=== PATIENT | female | born 1965 | race Caucasian/White ===

== ENCOUNTER 2019-10-17 17:20 | Emergency (ER) | payer OTHER ==
[~2019-10-17] VITALS: Ht 147.3 cm; Wt 52.6 kg
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
[2019-10-17] MEDS ORDERED: HYDRALAZINE HCL 20 MG/ML VIAL IV STA ×2 (18:41→18:42)
--- NOTE | 2019-10-17 18:50 | NUR ---
PATIENT STATES SHE DOES NOT TAKER HER BP AT HOME, BUT EVERY TIME SHE GOES INTO THE [facility] OFF[facility] HER BP IS ELEVATED AND HER MEDS ARE ADJUSTED. PATIENT DENIES ANY HEADACHE OR N/V. NEUROLOGICALLY INTACT
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
[2019-10-17] MEDS ORDERED: MOTRIN200 MG PO (19:26)
[2019-10-17] MEDS ORDERED: ROBAXIN-750750 MG PO (19:26)
[2019-10-17] MEDS ORDERED: HYDROCODONE/APAP 10MG-325MG TAB ONE (20:25)
[2019-10-17] MEDS ORDERED: KETOROLAC TROMETHAMINE 60 MG/2 ML VIAL IM ONE (20:30)
[2019-10-17] MEDS ORDERED: HYDROCODONE/APAP 10MG-325MG TAB PO ONE (20:30)
[2019-10-17] MEDS ORDERED: CLONIDINE HCL 0.1 MG TAB PO ONE (20:45)
[2019-10-17 21:20] VITALS: BP 211/83
== END 2019-10-17 21:40 | disposition home or self-care (01) ==
LOC: ER 18:50
DX: S16.1XXA Strain of muscle, fascia and tendon at neck level, initial encounter (principal); M25.562 Pain in left knee; V43.52XA Car driver injured in collision with other type car in traffic accident, initial encounter; Y92.488 Other paved roadways as the place of occurrence of the external cause; I10 Essential (primary) hypertension; E11.9 Type 2 diabetes mellitus without complications
CPT/HCPCS: 70450; 71045; 72125; 73562; 99283; J0360; J1885

== ENCOUNTER 2020-05-12 03:10 | Inpatient (IN) | payer OTHER ==
[~2020-05-12] VITALS: Ht 147.3 cm; Wt 53.5 kg
[~2020-05-12 03:10] MED LIST: MOTRIN200 MG PO; ROBAXIN-750750 MG PO
[2020-05-12] MEDS ORDERED: KETOROLAC TROMETHAMINE 30 MG/ML VIAL IV STA (03:17)
[2020-05-12] MEDS ORDERED: SODIUM CHLORIDE 0.9% 1000ML 1,000 ML IV ONE (03:30)
[2020-05-12 03:42] LABS: BASOPHILS # (AUTO) 0.1 (0.0-0.1); BASOPHILS % 0.4 % (0.0-1.0); HEMATOCRIT 41.9 % (34.2-44.1); HEMOGLOBIN 14.2 g/dL (12.0-16.0); LYMPHOCYTES # (AUTO) 0.2 (1.0-3.2); LYMPHOCYTES % 0.7 % (18.0-39.1); MEAN CORPUSCULAR HEMOGLOBIN 32.7 pg (28-32); MEAN CORPUSCULAR HGB CONC 33.9 g/dL (31-35); MEAN CORPUSCULAR VOLUME 96.5 fL (81-99); MONOCYTES # (AUTO) 0.4 (0.2-0.8); MONOCYTES % 1.4 % (4.4-11.3); NEUTROPHILS % 96.5 % (38.7-80.0); PLATELET COUNT 231 x10e3/uL (140-360); RED BLOOD COUNT 4.34 x10e6/uL (3.6-5.1); RED CELL DISTRIBUTION WIDTH 12.3 % (11.7-14.4)
[2020-05-12 03:47] LABS: CLARITY,URINE CLOUDY (CLEAR); COLOR,URINE YELLOW (YELLOW)
[2020-05-12 03:48] LABS: KETONES,URINE NEGATIVE (NEGATIVE); LEUKOCYTE ESTERASE ,URINE SMALL (NEGATIVE); NITRITE,URINE NEGATIVE (NEGATIVE); PROTEIN,URINE DIPSTICK 2+ (NEGATIVE); RBC,URINE >50 /HPF (0-5); URINE UROBILINOGEN 0.2 mg/dL (0.2 - 1); WBC,URINE (MAN) >50 /HPF (0-5)
[2020-05-12 03:49] LABS: BACTERIA,URINE MANY /HPF; EPITHELIAL CELLS,URINE MODERATE /LPF
[2020-05-12 03:51] LABS: ALBUMIN 3.8 g/dL (3.5-5.0); ALBUMIN/GLOBULIN RATIO 0.8 (0.8-2.0); ANION GAP 18.6 mmol/L (8-16); CALCIUM 9.1 mg/dL (8.4-10.2); CREATININE, SERUM 1.2 mg/dL (0.57-1.11); POTASSIUM 3.6 mmol/L (3.5-5.1)
[2020-05-12] MEDS ORDERED: ONDANSETRON HCL INJ 2MG/ML 2ML 2 MG/ML VIAL IV PRN (04:15)
[2020-05-12] MEDS ORDERED: SODIUM CHLORIDE 0.9% 1000ML 1,000 ML IV SCH (04:15)
[2020-05-12] MEDS ORDERED: CEFTRIAXONE SOD 1 GM/50 ML BAG IV SCH (04:15)
[2020-05-12] MEDS ORDERED: CEFTRIAXONE SOD 1 GM VIAL ONE (04:26)
[2020-05-12] MEDS ORDERED: CEFTRIAXONE SOD 1 GM in SODIUM CHLORIDE 0.9% 50ML 50 ML IV SCH (04:30)
[2020-05-12] MEDS ORDERED: SODIUM CHLORIDE 0.9% 1000ML 1,000 ML IV STA (04:59)
[2020-05-12] MEDS ORDERED: TAMSULOSIN HCL 0.4 MG CAP PO ONE (05:15)
[2020-05-12] MEDS: ACETAMINOPHEN 325 MG TAB PO PRN ×2 (05:18→17:37)
[2020-05-12] MEDS ORDERED: ACETAMINOPHEN 325 MG TAB ONE (05:26)
[2020-05-12 08:13] VITALS: BP 124/72
[2020-05-12 08:30] VITALS: BP 124/72
[2020-05-12] MEDS: KETOROLAC TROMETHAMINE 30 MG/ML VIAL IM PRN ×2 (10:19→16:35)
[2020-05-12] MEDS ORDERED: ATENOLOL50 MG PO (11:21)
[2020-05-12] MEDS: LACTATED RINGER'S 1,000 ML INJ SCH ×2 (12:00→22:00)
[2020-05-12] MEDS ORDERED: AMLODIPINE BESY10 MG PO (13:08)
[2020-05-12] MEDS ORDERED: LOSARTAN POTASS25 MG PO (13:08)
[2020-05-12] MEDS ORDERED: SYNTHROID100 MCG PO (13:08)
[2020-05-12] MEDS ORDERED: TIZANIDINE HCL4 M1 PO (13:08)
[2020-05-12] MEDS ORDERED: OMEPRAZOLE40 MG PO (13:08)
[2020-05-12] MEDS ORDERED: PROMETHAZINE HC25 M1 PO (13:08)
[2020-05-12] MEDS: PIPERACILLIN/TAZOBAC 3.375 GM in SODIUM CHLORIDE 0.9% 50ML 50 ML IV SCH ×2 (14:00→22:00)
[2020-05-12] MEDS ORDERED: NICOTINE 21 MG/EA PATCH TOP PRN (15:45)
[2020-05-12 16:21] VITALS: BP 132/66
[2020-05-12] MEDS: MORPHINE SULFATE INJ 4 MG/ML INJ 1ML IV PRN (19:50)
[2020-05-12 20:00] VITALS: BP 138/88
[2020-05-12 21:00] VITALS: BP 138/88
[2020-05-13] VITALS: BP 155/78
[2020-05-13] MEDS: MORPHINE SULFATE INJ 4 MG/ML INJ 1ML IV PRN ×3 (00:10→08:37)
[2020-05-13 04:00] VITALS: BP 154/78
[2020-05-13] MEDS: PIPERACILLIN/TAZOBAC 3.375 GM in SODIUM CHLORIDE 0.9% 50ML 50 ML IV SCH ×2 (06:10→11:55)
[2020-05-13 06:18] LABS: ALANINE AMINOTRANSFERASE 20 IU/L (0-55); ALBUMIN 2.7 g/dL (3.5-5.0); ALBUMIN/GLOBULIN RATIO 0.8 (0.8-2.0); ALKALINE PHOSPHATASE 55 IU/L (40-150); ANION GAP 12.2 mmol/L (8-16); BLOOD UREA NITROGEN 12 mg/dL (7-26); BUN/CREATININE RATIO 18 (6-25); CALCIUM 8.2 mg/dL (8.4-10.2); CARBON DIOXIDE 22 mmol/L (22-29); CHLORIDE 108 mmol/L (98-107); CREATININE, SERUM 0.65 mg/dL (0.57-1.11); EST GLOMERULAR FILTRATION RATE > 60 ML/MIN (60-); GLUCOSE 115 mg/dL (74-118); POTASSIUM 3.2 mmol/L (3.5-5.1); SODIUM 139 mmol/L (136-145)
[2020-05-13 08:05] VITALS: BP 154/78
[2020-05-13 08:10] VITALS: BP 164/75
[2020-05-13] MEDS: LACTATED RINGER'S 1,000 ML INJ SCH (09:57)
[2020-05-13 10:16] LABS: BASOPHILS % 0.2 % (0.0-1.0); EOSINOPHILS # (AUTO) 0.1 (0.0-0.4); EOSINOPHILS % 0.4 % (0.0-6.0); HEMATOCRIT 31.4 % (34.2-44.1); HEMOGLOBIN 10.6 g/dL (12.0-16.0); LYMPHOCYTES # (AUTO) 0.5 (1.0-3.2); LYMPHOCYTES % 3.7 % (18.0-39.1); MEAN CORPUSCULAR HEMOGLOBIN 31.9 pg (28-32); MEAN CORPUSCULAR HGB CONC 33.8 g/dL (31-35); MEAN CORPUSCULAR VOLUME 94.6 fL (81-99); MONOCYTES # (AUTO) 0.6 (0.2-0.8); NEUTROPHILS # (AUTO) 12.4 (2.1-6.9); NEUTROPHILS % 90.9 % (38.7-80.0); PLATELET COUNT 148 x10e3/uL (140-360); RED BLOOD COUNT 3.32 x10e6/uL (3.6-5.1); RED CELL DISTRIBUTION WIDTH 12.5 % (11.7-14.4)
[2020-05-13] MEDS ORDERED: POTASSIUM CHLORIDE 20 MEQ TAB CR PO ONE (10:30)
[2020-05-13 10:50] LABS: LYMPHOCYTES % (MANUAL) 2 % (19-48); MONOCYTES % (MANUAL) 2 % (3.4-9.0); NEUTROPHILS % (MANUAL) 96 % (40-74); PLATELET ESTIMATE ADEQUATE; PLATELET MORPHOLOGY COMMENT NORMAL; RBC MORPHOLOGY COMMENT NORMAL
[2020-05-13 11:00] VITALS: BP 160/75
[2020-05-13] MEDS ORDERED: ONDANSETRON HCL 4 MG ORAL DISINTEGRATING TAB PO PRN (11:30)
[2020-05-13] MEDS ORDERED: IOPAMIDOL 300MG/ML 50ML INFUS..BTL IV ONE (11:44)
[2020-05-13] MEDS ORDERED: PIPERACILLIN/TAZOBAC 3.375 GM VIAL ONE (12:02)
[2020-05-13] MEDS ORDERED: SODIUM CHLORIDE 0.9% 50ML 50 ML ONE (12:02)
[2020-05-13] MEDS ORDERED: FENTANYL CITRATE/PF 100MCG/2 ML INJ ONE (12:06)
[2020-05-13] MEDS ORDERED: MIDAZOLAM HCL 2 MG/2 ML VIAL ONE (12:06)
[2020-05-13] MEDS ORDERED: DEXTROSE 5%/0.45% SOD CHL 1,000 ML IV ONE (13:00)
[2020-05-13] MEDS ORDERED: ATROPINE SULFATE 1 MG/ML VIAL ONE (13:58)
[2020-05-13] MEDS ORDERED: NEOSTIGMINE 1 MG/ML 10ML VIAL ONE (13:58)
[2020-05-13] MEDS ORDERED: LIDOCAINE HCL 2% LOCAL INJ 5 ML SDV VIAL INJ ONE (13:58)
[2020-05-13] MEDS ORDERED: SEVOFLURANE INHAL SOLN 250 ML PEN BTL ONE (13:58)
[2020-05-13] MEDS ORDERED: KETOROLAC TROMETHAMINE 30 MG/ML VIAL ONE (13:58)
[2020-05-13] MEDS ORDERED: PROPOFOL IV EMULSION 10 MG/ML 20 ML VIAL ONE (13:58)
[2020-05-13] MEDS ORDERED: ONDANSETRON HCL INJ 2MG/ML 2ML 2 MG/ML VIAL ONE (13:58)
[2020-05-13] MEDS ORDERED: DEXAMETHASONE SOD PHOS INJ 4 MG/ML VIAL ONE (13:58)
[2020-05-13] MEDS ORDERED: TIZANIDINE HCL 4 MG TAB PO SCH (14:00)
[2020-05-13] MEDS: ACETAMINOPHEN 325 MG TAB PO PRN (14:58)
[2020-05-13 16:08] VITALS: BP 126/64
[2020-05-13] MEDS ORDERED: BACTRIM DS TAB1 EACH PO (17:04)
[2020-05-14] MEDS ORDERED: LEVOTHYROXINE SODIUM 100 MCG TAB PO SCH (06:00)
[2020-05-14] MEDS ORDERED: AMLODIPINE BESYLATE 10 MG TAB PO SCH (09:00)
[2020-05-14] MEDS ORDERED: LOSARTAN POTASSIUM 25 MG TAB PO SCH (09:00)
[2020-05-14] MEDS ORDERED: ATENOLOL 50 MG TAB PO SCH (09:00)
== END 2020-05-13 17:51 | disposition home or self-care (01) | DRG 854 ==
LOC: ER 03:25 → ERHOLD 04:52 → MED/SURG3 07:57
PROVIDERS: ADMIT Internal Medicine; ATTEND Internal Medicine
PROC: BT141ZZ Fluoroscopy of Kidneys, Ureters and Bladder using Low Osmolar Contrast (ICD-10-PCS; principal; 2020-05-13 11:45)
PROC: 0T778DZ Dilation of Left Ureter with Intraluminal Device, Via Natural or Artificial Opening Endoscopic (ICD-10-PCS; 2020-05-13 11:45)
DX: A41.59 Other Gram-negative sepsis (principal); N13.6 Pyonephrosis; N81.10 Cystocele, unspecified; M41.9 Scoliosis, unspecified; E03.9 Hypothyroidism, unspecified; I10 Essential (primary) hypertension; Z90.49 Acquired absence of other specified parts of digestive tract; Z88.5 Allergy status to narcotic agent; Z88.8 Allergy status to other drugs, medicaments and biological substances; Z91.018 Allergy to other foods; Z20.822 Contact with and (suspected) exposure to COVID-19
CPT/HCPCS: 36415; 74176; 74420; 80053; 81001; 83036; 83605; 83690; 85025; 87040; 87071; 87086; 87186; 87205; 99284; C1758; C1766; C2625; J0461; J0696; J1100; J1885; J2001; J2250; J2270; J2405; J2543; J2710; J3010; J7030; J7121; U0002

== ENCOUNTER 2021-11-16 12:56 | Emergency (ER) | payer OTHER ==
[~2021-11-16] VITALS: Ht 149.9 cm; Wt 53.1 kg
[~2021-11-16 12:56] MED LIST changes: +AMLODIPINE BESY10 MG PO; +ATENOLOL50 MG PO; +BACTRIM DS TAB1 EACH PO; +LOSARTAN POTASS25 MG PO; +OMEPRAZOLE40 MG PO; +PROMETHAZINE HC25 M1 PO; +SYNTHROID100 MCG PO; +TIZANIDINE HCL4 M1 PO
[2021-11-16] MEDS ORDERED: ACETAMINOPHEN 325 MG TAB PO ONE (14:30)
== END 2021-11-16 16:25 | disposition home or self-care (01) ==
LOC: ER 15:47
DX: R68.83 Chills (without fever) (principal); I10 Essential (primary) hypertension; M41.9 Scoliosis, unspecified; Z20.822 Contact with and (suspected) exposure to COVID-19
CPT/HCPCS: 99282; U0002

== ENCOUNTER 2023-09-24 11:36 | Inpatient (IN) | payer OTHER ==
[~2023-09-24] VITALS: Ht 147.3 cm; Wt 43.1 kg
[2023-09-24] MEDS: SODIUM CHLORIDE 0.9% 1000ML 1,000 ML IV ONE (14:15)
[2023-09-24] MEDS: ONDANSETRON HCL INJ 2MG/ML 2ML 2 MG/ML VIAL IV ONE (14:15)
[2023-09-24 14:33] LABS: HEMATOCRIT 31.6 % (34.2-44.1); HEMOGLOBIN 10.2 g/dL (12.0-16.0); MEAN CORPUSCULAR HEMOGLOBIN 31.1 pg (28-32); MEAN CORPUSCULAR HGB CONC 32.3 g/dL (31-35); MEAN CORPUSCULAR VOLUME 96.3 fL (81-99); PLATELET COUNT 548 x10e3/uL (140-360); RED BLOOD COUNT 3.28 x10e6/uL (3.6-5.1); RED CELL DISTRIBUTION WIDTH 15.9 % (11.7-14.4); WHITE BLOOD COUNT 19.71 x10e3/uL (4.8-10.8)
[2023-09-24 14:34] LABS: BASOPHILS % 0.2 % (0.0-1.0); EOSINOPHILS # (AUTO) 0.1 (0.0-0.4); EOSINOPHILS % 0.3 % (0.0-6.0); LYMPHOCYTES # (AUTO) 0.9 (1.0-3.2); LYMPHOCYTES % 4.3 % (18.0-39.1); MONOCYTES # (AUTO) 0.8 (0.2-0.8); NEUTROPHILS # (AUTO) 17.9 (2.1-6.9); NEUTROPHILS % 90.7 % (38.7-80.0)
[2023-09-24 14:51] LABS: ANION GAP 19.3 mmol/L (8-16); BILIRUBIN,TOTAL 0.6 mg/dL (0.2-1.2); CALCIUM 9.1 mg/dL (8.4-10.2); CREATININE, SERUM 1.04 mg/dL (0.57-1.11); POTASSIUM 4.3 mmol/L (3.5-5.1)
[2023-09-24 14:52] LABS: ALBUMIN 3.1 g/dL (3.5-5.0); ALBUMIN/GLOBULIN RATIO 0.7 (0.8-2.0); TOTAL PROTEIN 7.7 g/dL (6.5-8.1)
[2023-09-24] MEDS ORDERED: IOPAMIDOL 370 MG/ML 100 ML INFUS..BTL INJ ONE (15:07)
[2023-09-24] MEDS ORDERED: SODIUM CHLORIDE FLUSH 10 ML SYR INJ PRN (18:00)
[2023-09-24] MEDS: ONDANSETRON HCL INJ 2MG/ML 2ML 2 MG/ML VIAL IV STA (18:03)
[2023-09-24] MEDS: SODIUM CHLORIDE 0.9% 1000ML 1,000 ML IV STA (18:03)
[2023-09-24] MEDS: SODIUM CHLORIDE 0.9% 1000ML 1,000 ML IV SCH (18:27)
[2023-09-24] MEDS: ONDANSETRON HCL INJ 2MG/ML 2ML 2 MG/ML VIAL IV PRN (18:27)
[2023-09-24] MEDS: Morphine 4mg INJECTION 4 MG/ML INJ IV PRN (18:27)
[2023-09-24 19:05] VITALS: PULSE 89; RESP 20; TEMP 98.3
[2023-09-24 20:45] VITALS: BP 122/78; PULSE 89; RESP 15; TEMP 98.4; O2SAT 99
[2023-09-24 21:26] VITALS: BP 129/74; PULSE 79; RESP 18; TEMP 98.4; O2SAT 100
[2023-09-25] VITALS (7 sets, daily range): BP systolic 111–149; BP diastolic 61–86; PULSE 66–73; RESP 18; TEMP 97.8–98.5; O2SAT 95–99
[2023-09-25] MEDS ORDERED: GABAPENTIN400 MG PO (00:56)
[2023-09-25] MEDS ORDERED: TIZANIDINE HCL4 MG PO (00:56)
[2023-09-25] MEDS ORDERED: HYDROCODON-ACE1 EAC9 PO (00:56)
[2023-09-25] MEDS ORDERED: ONDANSETRON HCL4 MG PO (00:56)
[2023-09-25] MEDS: CHLORASEPTIC SPRAY 177 ML BTL MM PRN (11:58)
[2023-09-25] MEDS: SODIUM CHLORIDE 0.9% 250ML IRRIG IR SCH (14:43)
[2023-09-25] MEDS: BISACODYL 10 MG SUPP PR SCH (21:39)
[2023-09-26 06:34] LABS: BASOPHILS % 0.1 % (0.0-1.0); EOSINOPHILS # (AUTO) 0.1 (0.0-0.4); EOSINOPHILS % 0.8 % (0.0-6.0); HEMATOCRIT 24.9 % (34.2-44.1); HEMOGLOBIN 7.6 g/dL (12.0-16.0); LYMPHOCYTES # (AUTO) 0.9 (1.0-3.2); MEAN CORPUSCULAR HEMOGLOBIN 30.4 pg (28-32); MEAN CORPUSCULAR HGB CONC 30.5 g/dL (31-35); MEAN CORPUSCULAR VOLUME 99.6 fL (81-99); MONOCYTES # (AUTO) 0.4 (0.2-0.8); MONOCYTES % 4.1 % (4.4-11.3); NEUTROPHILS # (AUTO) 7.1 (2.1-6.9); NEUTROPHILS % 83.5 % (38.7-80.0); PLATELET COUNT 397 x10e3/uL (140-360); RED CELL DISTRIBUTION WIDTH 16.1 % (11.7-14.4); WHITE BLOOD COUNT 8.53 x10e3/uL (4.8-10.8)
[2023-09-26 06:59] LABS: ALBUMIN 2.4 g/dL (3.5-5.0); ALBUMIN/GLOBULIN RATIO 0.7 (0.8-2.0); ANION GAP 11.1 mmol/L (8-16); BILIRUBIN,TOTAL 0.3 mg/dL (0.2-1.2); CALCIUM 7.9 mg/dL (8.4-10.2); CREATININE, SERUM 0.71 mg/dL (0.57-1.11); POTASSIUM 4.1 mmol/L (3.5-5.1)
[2023-09-26] MEDS: DEXTROSE 50% SYRINGE 50 ML IV STA (07:50)
[2023-09-26] MEDS: DEXTROSE 5%/0.45% SOD CHL 1,000 ML IV SCH (07:51)
[2023-09-26 08:00] VITALS: BP 149/86; PULSE 66; RESP 18; TEMP 97.8; O2SAT 95
[2023-09-26 09:16] VITALS: BP 149/66; PULSE 64; RESP 19; TEMP 98.3; O2SAT 100
[2023-09-26 11:56] VITALS: BP 167/78; PULSE 60; RESP 19; TEMP 97.8; O2SAT 100
[2023-09-26 17:16] VITALS: BP 151/74; PULSE 65; RESP 19; TEMP 98.5; O2SAT 99
[2023-09-26 20:00] VITALS: BP 156/75; PULSE 59; RESP 18; TEMP 98; O2SAT 100
[2023-09-27] VITALS: BP 161/77; PULSE 60; RESP 20; TEMP 98.4; O2SAT 100
[2023-09-27 04:00] VITALS: BP 167/75; PULSE 105; RESP 18; TEMP 98; O2SAT 100
[2023-09-27 05:03] LABS: BASOPHILS # (AUTO) 0.1 (0.0-0.1); BASOPHILS % 0.7 % (0.0-1.0); EOSINOPHILS # (AUTO) 0.1 (0.0-0.4); EOSINOPHILS % 1.7 % (0.0-6.0); HEMATOCRIT 25.8 % (34.2-44.1); HEMOGLOBIN 8.2 g/dL (12.0-16.0); LYMPHOCYTES # (AUTO) 1.7 (1.0-3.2); LYMPHOCYTES % 19.7 % (18.0-39.1); MEAN CORPUSCULAR HEMOGLOBIN 31.4 pg (28-32); MEAN CORPUSCULAR HGB CONC 31.8 g/dL (31-35); MEAN CORPUSCULAR VOLUME 98.9 fL (81-99); MONOCYTES # (AUTO) 0.4 (0.2-0.8); NEUTROPHILS # (AUTO) 6.1 (2.1-6.9); NEUTROPHILS % 72.5 % (38.7-80.0); PLATELET COUNT 383 x10e3/uL (140-360); RED BLOOD COUNT 2.61 x10e6/uL (3.6-5.1); RED CELL DISTRIBUTION WIDTH 16.1 % (11.7-14.4); WHITE BLOOD COUNT 8.41 x10e3/uL (4.8-10.8)
[2023-09-27 05:27] LABS: CALCIUM 7.8 mg/dL (8.4-10.2); CREATININE, SERUM 0.71 mg/dL (0.57-1.11)
[2023-09-27 05:50] LABS: FERRITIN 262.82 ng/mL (4.63-204.00)
[2023-09-27 08:17] VITALS: BP 165/76; PULSE 50; RESP 18; TEMP 97.9; O2SAT 98
[2023-09-27 09:00] VITALS: BP 165/76; PULSE 50; RESP 18; TEMP 97.9; O2SAT 98
[2023-09-27 11:45] VITALS: BP 172/95; PULSE 53; RESP 18; TEMP 98.1; O2SAT 100
[2023-09-27] MEDS ORDERED: POTASSIUM CHLORIDE 20 MEQ TAB CR PO ONE (16:30)
[2023-09-27 16:51] VITALS: BP 146/77; PULSE 58; RESP 18; TEMP 98.4; O2SAT 100
== END 2023-09-27 17:35 | disposition left against medical advice (07) | DRG 389 ==
LOC: ER 12:48 → ERHOLD 17:52 → MED/SURG2 20:33
PROVIDERS: ADMIT Internal Medicine; ATTEND Internal Medicine
DX: K56.609 Unspecified intestinal obstruction, unspecified as to partial versus complete obstruction (principal); E87.1 Hypo-osmolality and hyponatremia; Z68.1 Body mass index [BMI] 19.9 or less, adult; D63.8 Anemia in other chronic diseases classified elsewhere; I10 Essential (primary) hypertension; R63.4 Abnormal weight loss; D72.829 Elevated white blood cell count, unspecified; E86.0 Dehydration; M41.9 Scoliosis, unspecified; E16.2 Hypoglycemia, unspecified; R91.1 Solitary pulmonary nodule; E89.0 Postprocedural hypothyroidism; K21.9 Gastro-esophageal reflux disease without esophagitis; Z11.52 Encounter for screening for COVID-19; Z79.890 Hormone replacement therapy; Z90.49 Acquired absence of other specified parts of digestive tract; Z90.710 Acquired absence of both cervix and uterus; F17.200 Nicotine dependence, unspecified, uncomplicated; Z88.6 Allergy status to analgesic agent; Z88.5 Allergy status to narcotic agent; Z91.011 Allergy to milk products
CPT/HCPCS: 36415; 74018; 74022; 74177; 80048; 80053; 82607; 82728; 82746; 82948; 83540; 84466; 85025; 85045; 87040; 99284; J2270; J2405; J2470; J2543; J7030; J7799; Q9967; U0002